=== PATIENT | female | born 1975 | race Caucasian/White ===

== ENCOUNTER 2024-04-08 06:46 | Day surgery (SDC) | payer OTHER ==
[~2024-04-08] VITALS: Ht 154.9 cm; Wt 70.3 kg
[2024-04-08] MEDS ORDERED: fentaNYL citrate 0.05 MG/ML VIAL ONE (08:21)
[2024-04-08] MEDS: fentaNYL citrate 0.05 MG/ML VIAL IVP ONE (08:28)
[2024-04-08] MEDS: LIDOCAINE 2% 100 MG/5 ML UJET TP ONE (08:44)
== END 2024-04-08 09:50 | disposition home or self-care (01) ==
LOC: MTU 06:46 → MMU 06:46 → MDS 06:46 → MMU 07:02 → MDS 09:50
PROVIDERS: ATTEND Internal Medicine Gastroenterology
DX: K59.00 Constipation, unspecified (principal); K62.5 Hemorrhage of anus and rectum; K64.4 Residual hemorrhoidal skin tags; K63.5 Polyp of colon; K21.9 Gastro-esophageal reflux disease without esophagitis; Z98.51 Tubal ligation status; Z88.5 Allergy status to narcotic agent; Z79.899 Other long term (current) drug therapy; Z98.890 Other specified postprocedural states
CPT/HCPCS: 45385; J3010